=== PATIENT | male | born 1970 | race Caucasian/White ===

== ENCOUNTER → 2016-04-16 | Outpatient (CLI) | payer OTHER ==
--- NOTE | 2016-04-16 08:23 | MR ---
EXAMINATION TYPE: MR shoulder RT wo con DATE OF EXAM: 04/16/2016 7:03 AM COMPARISON: Preoperative study of 02/06/2012 HISTORY: RT. shoulder pain, prior surgeries TECHNIQUE: Multiplanar multispin echo imaging of the right shoulder was performed. FINDINGS: Rotator cuff : Extensive postsurgical change of rotator cuff repair with the extensive metallic susce ptibility artifact resulting in nondiagnostic evaluation. Bursa: No bursal effusion or thickening is seen. Musculature: There is no muscular tear, contusion, or atrophy. Acromioclavicular joint : Postsurgical changes. Poorly evaluated given the extensive artifact. Osseous structures : There are no fractures or regions of abnormal bone marrow signal intensity. Long biceps tendon : Poorly visualized given extensive metallic susceptibility artifact. Glenohumeral Joint fluid : There is no glenohumeral joint effusion. Cartilage and Bone : No focal hyaline cartilage defects are noted. No Hill-Sachs, reverse Hill-Sachs, or bony Bankart lesions are seen. Labrum : There are no SLAP or soft tissue Bankart lesions. No paralabral cysts are seen. OTHER FINDINGS : none IMPRESSION: 1. Essentially nondiagnostic study for evaluation of the rotator cuff given extensive metallic suscep tibility artifact from prior rotator cuff surgery.
== END | disposition home or self-care (01) ==
LOC: RADMRIMAIN 06:18
PROVIDERS: ATTEND Internal Medicine
DX: M25.511 Pain in right shoulder (principal)

== ENCOUNTER 2016-08-02 11:18 | Emergency (ER) | payer OTHER ==
[2016-08-02 11:39] VITALS: TEMP 97.4
[2016-08-02] MEDS ORDERED: SODIUM CHLORIDE 0.9% 1,000 ML IV STA ×2 (12:13)
[2016-08-02] MEDS ORDERED: RX INFO: IV CONTRAST WAS GIVEN 1 EACH MISC MISCELLANE PRN (12:13)
[2016-08-02] MEDS ORDERED: LORazepam 2 MG/ML SYRINGE IV STA (12:17)
[2016-08-02 12:40] VITALS: RESP 18
[2016-08-02 12:46] LABS: Basophils # (A) 0.1 k/uL (0-0.2); Basophils % (A) 1 %; CH 32.7; CHCM 36.7; Eosinophils # (A) 0.3 k/uL (0-0.7); Eosinophils % (A) 3 %; HCT 40.3 % (39.0-53.0); HDW 2.89; HGB 14.6 gm/dL (13.0-17.5); Luc # (Auto) 0.17; Luc % (Auto) 2; Lymphocytes # (A) 2.5 k/uL (1.0-4.8); Lymphocytes % (A) 25 %; MCH 32.4 pg (25.0-35.0); MCHC 36.1 g/dL (31.0-37.0); MCV 89.6 fL (80.0-100.0); Monocytes # (A) 0.5 k/uL (0-1.0); Monocytes % (A) 5 %; Neutrophils # (A) 6.6 k/uL (1.3-7.7); Neutrophils % (A) 65 %; RDW 13.2 % (11.5-15.5); WBC 10.2 k/uL (3.8-10.6); WBC (Perox) 10.05
[2016-08-02 12:58] LABS: ALT 70 U/L (21-72); AST 41 U/L (17-59); Alkaline Phosphatase 79 U/L (38-126); Anion Gap 8 mmol/L; Blood Urea Nitrogen 13 mg/dL (9-20); Calcium 10.3 mg/dL (8.4-10.2); Carbon Dioxide 23 mmol/L (22-30); Chloride 109 mmol/L (98-107); Glucose 99 mg/dL (74-99); Magnesium 2.1 mg/dL (1.6-2.3); Non-African American GFR(MDRD) >60 (>60 ml/min/1.73 sqM); Potassium 4.6 mmol/L (3.5-5.1); Sodium 140 mmol/L (137-145); Total Bilirubin 0.7 mg/dL (0.2-1.3); Total Protein 6.3 g/dL (6.3-8.2)
[2016-08-02 13:14] LABS: Partial Thromboplastin Time 22.7 sec (22.0-30.0); Prothrombin Time 9.9 sec (9.0-12.0)
[2016-08-02 13:15] LABS: Creatine Kinase 159 U/L (55-170)
--- NOTE | 2016-08-02 13:27 | ED ---
General Adult HPI - General Chief complaint: Shortness of Breath Stated complaint: KULDIP Time Seen by Provider: 08/02/16 11:48 Source: patient, RN notes reviewed, old records reviewed Mode of arrival: ambulatory Limitations: no limitations - History of Present Illness Initial comments: This is a 45-year-old male here for evaluation. This patient presents here for evaluation of chest pain. Patient is chest pain shortness of breath. And a near syncopal event today. Patient has history of smoking and recently quit smoking. No history of DVT. Patient did have recent surgery about a month and a half ago. Otherwise patient has no complaints. No fevers. Increased cough and increased congestion. At this time is distress does complain of pain, pain with deep breath and pain with coughing right ribs - Related Data Home Medications Medication Instructions Recorded Confirmed Atenolol [Tenormin] 25 mg PO DAILY 08/02/16 08/02/16 Atomoxetine HCl [Strattera] 80 mg PO QAM 08/02/16 08/02/16 Cyclobenzaprine [Flexeril] 10 mg PO TID PRN 08/02/16 08/02/16 Zolpidem [Ambien] 10 mg PO HS PRN 08/02/16 08/02/16 Previous Rx's Medication Instructions Recorded Ibuprofen [Motrin] 800 mg PO Q6HR PRN #20 tab 04/03/15 Albuterol Inhaler [Ventolin Hfa 1 - 2 puff INHALATION Q6HR #1 08/02/16 Inhaler] inhaler Levofloxacin [Levaquin] 750 mg PO DAILY #7 tab 08/02/16 predniSONE 50 mg PO DAILY #5 tab 08/02/16 Allergies Allergy/AdvReac Type Severity Reaction Status Date / Time steroids Allergy Severe uncontrolled Uncoded 08/02/16 11:39 anger Review of Systems ROS Statement: Those systems with pertinent positive or pertinent negative responses have been documented in the HPI. ROS Other: All systems not noted in ROS Statement are negative. 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 Absent: scleral icterus, conjunctival injection, periorbital swelling ENT exam: Present: normal exam, mucous membranes moist Neck exam: Present: normal inspection. Absent: tenderness, meningismus, lymphadenopathy Respiratory exam: Present: normal lung sounds bilaterally. Absent: respiratory distress, wheezes, rales, rhonchi, stridor Cardiovascular Exam: Present: regular rate, normal rhythm, normal heart sounds. Absent: systolic murmur, diastolic murmur, rubs, gallop, clicks GI/Abdominal exam: Present: soft, normal bowel sounds. Absent: distended, tenderness, guarding, rebound, rigid Extremities exam: Present: normal inspection, full ROM, normal capillary refill. Absent: tenderness, pedal edema, joint swelling, calf tenderness Back exam: Present: normal inspection Neurological exam: Present: alert, oriented X3, CN II-XII intact Psychiatric exam: Present: normal affect, normal mood Skin exam: Present: warm, dry, intact, normal color. Absent: rash Course Vital Signs 08/02/16 08/02/16 08/02/16 11:37 12:37 14:07 Temperature 97.4 F L Pulse Rate 78 78 75 Respiratory 22 18 18 Rate Blood Pressure 138/92 138/81 125/73 O2 Sat by Pulse 94 L 97 95 Oximetry - Reevaluation(s) Reevaluation #1: 08/02/16 13:25 Patient does have pain control at this time Reevaluation #2: 08/02/16 14:12 Patient in no acute respiratory distress, pain is controlled. EKG Findings - EKG Comments: EKG Findings:: EKG shows normal sinus rhythm rate of 69, VA 144, QRS 96, QTC 396 Medical Decision Making - Medical Decision Making 42 female here with chest pain and right-sided chest pain, patient will be discharged home with pain control, treatment for pneumonia pneumonitis, CT negative for PE. EKG is negative and patient's otherwise in no acute distress - Lab Data Result diagrams: 08/02/16 12:28 05/26/17 12:28 Lab Results 08/02/16 08/02/16 08/02/16 Range/Units 12:28 12:28 12:28 WBC 10.2 (3.8-10.6) k/uL RBC 4.50 (4.30-5.90) m/uL Hgb 14.6 (13.0-17.5) gm/dL Hct 40.3 (39.0-53.0) % MCV 89.6 (80.0-100.0) fL MCH 32.4 (25.0-35.0) pg MCHC 36.1 (31.0-37.0) g/dL RDW 13.2 (11.5-15.5) % Plt Count 283 (150-450) k/uL Neutrophils % 65 % Lymphocytes % 25 % Monocytes % 5 % Eosinophils % 3 % Basophils % 1 % Neutrophils # 6.6 (1.3-7.7) k/uL Lymphocytes # 2.5 (1.0-4.8) k/uL Monocytes # 0.5 (0-1.0) k/uL Eosinophils # 0.3 (0-0.7) k/uL Basophils # 0.1 (0-0.2) k/uL PT (9.0-12.0) sec INR (<1.1) APTT (22.0-30.0) sec D-Dimer (<0.60) mg/L FEU Sodium 140 (137-145) mmol/L Potassium 4.6 (3.5-5.1) mmol/L Chloride 109 H (98-107) mmol/L Carbon Dioxide 23 (22-30) mmol/L Anion Gap 8 mmol/L BUN 13 (9-20) mg/dL Creatinine 0.87 (0.66-1.25) mg/dL Est GFR (MDRD) Af Amer >60 (>60 ml/min/1.73 sqM) Est GFR (MDRD) Non-Af >60 (>60 ml/min/1.73 sqM) Glucose 99 (74-99) mg/dL Calcium 10.3 H (8.4-10.2) mg/dL Magnesium 2.1 (1.6-2.3) mg/dL Total Bilirubin 0.7 (0.2-1.3) mg/dL AST 41 (17-59) U/L ALT 70 (21-72) U/L Alkaline Phosphatase 79 (38-126) U/L Total Creatine Kinase 159 (55-170) U/L CK-MB (CK-2) 2.1 (0.0-2.4) ng/mL CK-MB (CK-2) Rel Index 1.3 Troponin I <0.012 (0.000-0.034) ng/mL NT-Pro-B Natriuret Pep pg/mL Total Protein 6.3 (6.3-8.2) g/dL Albumin 4.0 (3.5-5.0) g/dL 08/02/16 08/02/16 Range/Units 12:28 12:28 WBC (3.8-10.6) k/uL RBC (4.30-5.90) m/uL Hgb (13.0-17.5) gm/dL Hct (39.0-53.0) % MCV (80.0-100.0) fL MCH (25.0-35.0) pg MCHC (31.0-37.0) g/dL RDW (11.5-15.5) % Plt Count (150-450) k/uL Neutrophils % % Lymphocytes % % Monocytes % % Eosinophils % % Basophils % % Neutrophils # (1.3-7.7) k/uL Lymphocytes # (1.0-4.8) k/uL Monocytes # (0-1.0) k/uL Eosinophils # (0-0.7) k/uL Basophils # (0-0.2) k/uL PT 9.9 (9.0-12.0) sec INR 1.0 (<1.1) APTT 22.7 (22.0-30.0) sec D-Dimer <0.17 (<0.60) mg/L FEU Sodium (137-145) mmol/L Potassium (3.5-5.1) mmol/L Chloride (98-107) mmol/L Carbon Dioxide (22-30) mmol/L Anion Gap mmol/L BUN (9-20) mg/dL Creatinine (0.66-1.25) mg/dL Est GFR (MDRD) Af Amer (>60 ml/min/1.73 sqM) Est GFR (MDRD) Non-Af (>60 ml/min/1.73 sqM) Glucose (74-99) mg/dL Calcium (8.4-10.2) mg/dL Magnesium (1.6-2.3) mg/dL Total Bilirubin (0.2-1.3) mg/dL AST (17-59) U/L ALT (21-72) U/L Alkaline Phosphatase (38-126) U/L Total Creatine Kinase (55-170) U/L CK-MB (CK-2) (0.0-2.4) ng/mL CK-MB (CK-2) Rel Index Troponin I (0.000-0.034) ng/mL NT-Pro-B Natriuret Pep 17 pg/mL Total Protein (6.3-8.2) g/dL Albumin (3.5-5.0) g/dL - Radiology Data Radiology results: report reviewed (CTA chest does show negative for PE but pneumonitis pneumonia), image reviewed Disposition Clinical Impression: Acute exacerbation of chronic obstructive airways disease, Community acquired pneumonia Disposition: HOME SELF-CARE Condition: Good Instructions: Acute Bronchitis (ED), Pneumonitis (ED), Community Acquired Pneumonia (ED) Prescriptions: Albuterol Inhaler [Ventolin Hfa Inhaler] 1 - 2 puff INHALATION Q6HR #1 inhaler Levofloxacin [Levaquin] 750 mg PO DAILY #7 tab predniSONE 50 mg PO DAILY #5 tab Referrals: Tanya Griggs MD [Primary Care Provider] - 1-2 days
[2016-08-02 13:28] LABS: Creatine Kinase MB 2.1 ng/mL (0.0-2.4); Troponin I <0.012 ng/mL (0.000-0.034)
--- NOTE | 2016-08-02 13:40 | CT ---
EXAMINATION TYPE: CT angio chest DATE OF EXAM: 08/02/2016 COMPARISON: Chest x-ray 03 April 2015 HISTORY: Cough and SOB CT DLP: 578 mGycm Automated exposure control for dose reduction was used. CONTRAST: CTA scan of the thorax is performed with IV Contrast, patient injected with 90 mL of Omnipaque 350, p ulmonary embolism protocol. MIP images are created and reviewed. 3D reconstructed images are create d on an independent workstation and reviewed. FINDINGS: LUNGS: The lungs are remarkable for some possible scarring or atelectasis in the right middle lobe, t here is minimal nodularity, axial image 89 left lower lobe, there is some associated groundglass opac ity suggesting some pneumonitis. There is no pleural effusion or pneumothorax seen. The tracheobro nchial tree is patent. There is bronchial wall thickening. AORTA: No additional significant abnormality is seen. There are coronary artery calcifications prese nt. Pulmonary artery is somewhat prominent. MEDIASTINUM: There is not satisfactory enhancement of the pulmonary artery and its branches, there is no CT evidence for pulmonary embolism. There are no greater than 1 cm hilar or mediastinal lymph no mikayla. No pericardial effusion is seen. OTHER: No additional significant abnormality is seen. The liver shows low attenuation likely due to fatty infiltration. IMPRESSION: CORRELATE FOR PULMONARY ARTERY HYPERTENSION. SUBOPTIMAL ENHANCEMENT OF SEGMENTAL BRANCHES TO EXCLUDE PULMONARY EMBOLISM. POSSIBLE PNEUMONITIS LEFT LOWER LOBE. CORRELATE FOR POSSIBLE EARLY PNEUMONIA. ADD ITIONAL FINDINGS ABOVE.
[2016-08-02 14:08] VITALS: BP 125/73; PULSE 75
[2016-08-02] MEDS ORDERED: methylPREDNISolone SOD SUCCI 125 MG/2 ML VIAL IV STA (14:10)
[2016-08-02] MEDS ORDERED: LEVOFLOXACIN 750 MG TAB PO STA (14:10)
[2016-08-02] MEDS ORDERED: KETOROLAC 30 MG/ML 1 ML VIAL IVP STA (14:11)
== END 2016-08-02 14:42 | disposition home or self-care (01) ==
LOC: EC 11:18
DX: J44.1 Chronic obstructive pulmonary disease with (acute) exacerbation (principal); J18.9 Pneumonia, unspecified organism; I10 Essential (primary) hypertension; F90.9 Attention-deficit hyperactivity disorder, unspecified type; Z87.891 Personal history of nicotine dependence; Z79.899 Other long term (current) drug therapy; Z88.8 Allergy status to other drugs, medicaments and biological substances
CPT/HCPCS: 36415; 93005; 85379; 83880; 80053; 82550; 82553; 83735; 84484; 85025; 85610; 85730; 71275; 99285; 96374; 96375 ×2; 96361 ×2; J2060; J2930; Q9967; J1885

== ENCOUNTER → 2016-09-03 | Outpatient (CLI) | payer OTHER ==
--- NOTE | 2016-09-03 15:58 | XR ---
EXAMINATION TYPE: XR foot complete bilateral DATE OF EXAM ORDERED: 09/03/2016 HISTORY: M79.673 pain in feet. COMPARISON: None. FINDINGS: No fracture, dislocation or other acute osseous lesion is seen. There is mild degenerative change in the first MTP joints bilaterally. There are small, plantar calcaneal spurs present bilater ally. IMPRESSION: 1. NO ACUTE OSSEOUS LESION. 2. PLANTAR CALCANEAL SPURS. 3. MINIMAL DEGENERATIVE CHANGE, BOTH FIRST MTP JOINTS.
== END | disposition home or self-care (01) ==
LOC: RADXRMAIN 15:05
PROVIDERS: ATTEND Internal Medicine
DX: M77.32 Calcaneal spur, left foot (principal); M77.31 Calcaneal spur, right foot; M25.872 Other specified joint disorders, left ankle and foot; M25.871 Other specified joint disorders, right ankle and foot

== ENCOUNTER 2017-05-27 22:05 | Emergency (ER) | payer OTHER ==
[2017-05-27 22:13] VITALS: TEMP 99
[2017-05-27] MEDS ORDERED: KETOROLAC 30 MG/ML 1 ML VIAL IM STA (22:34)
[2017-05-27] MEDS ORDERED: ORPHENADRINE 30 MG/ML 2 ML VIAL IM STA (22:34)
[2017-05-27] MEDS ORDERED: HYDROcodone/APAP 5-325MG 1 EACH TAB PO STA (22:34)
--- NOTE | 2017-05-27 22:43 | ED ---
Back Pain HPI - General Chief Complaint: Back Pain/Injury Stated Complaint: fell in tub/Back pain Time Seen by Provider: 05/27/17 22:19 Source: patient Limitations: no limitations - History of Present Illness Initial Comments: 46-year-old male patient presents to the emergency department today for evaluation of low back pain. Patient states yesterday he had a slip and fall in the bathtub. He denies striking his back on anything however reports that he started having low back pain today. Patient is reporting midline lower lumbar pain. He states he is having some tingling to his bilateral lower extremities however this is chronic for him. He denies any loss of bowel or bladder control. Denies any saddle anesthesia. Patient states he is able to ambulate but it does increase his pain. Patient denies hitting his head or losing consciousness with the fall. Denies any other injuries. Patient denies any headache, neck pain, chest pain, shortness of breath, dizziness, weakness, abdominal pain, nausea, vomiting, or difficulties with bowel movements or urination. - Related Data Home Medications Medication Instructions Recorded Confirmed Atomoxetine HCl [Strattera] 80 mg PO QAM 08/02/16 05/27/17 Cyclobenzaprine [Flexeril] 10 mg PO TID PRN 08/02/16 05/27/17 Lisinopril [Prinivil] 10 mg PO DAILY 05/27/17 05/27/17 Previous Rx's Medication Instructions Recorded Ibuprofen [Motrin] 800 mg PO Q6HR PRN #20 tab 04/03/15 Hydrocodone/Acetaminophen [Republic 1 tab PO Q6HR PRN #8 tab 05/27/17 5-325] Ibuprofen [Motrin] 600 mg PO Q8HR PRN #30 tab 05/27/17 Allergies Allergy/AdvReac Type Severity Reaction Status Date / Time steroids Allergy Severe uncontrolled Uncoded 05/27/17 22:12 anger Review of Systems ROS Statement: Those systems with pertinent positive or pertinent negative responses have been documented in the HPI. ROS Other: All systems not noted in ROS Statement are negative. Past Medical History Past Medical History: Hypertension Additional Past Medical History / Comment(s): Kidney stones History of Any Multi-Drug Resistant Organisms: None Reported Past Surgical History: Orthopedic Surgery Additional Past Surgical History / Comment(s): bilateral shoulder, bilateral knees Past Anesthesia/Blood Transfusion Reactions: No Reported Reaction Past Psychological History: ADD/ADHD Smoking Status: Former smoker Past Alcohol Use History: Occasional Past Drug Use History: Marijuana - Past Family History Mother Family Medical History: No Reported History General Exam Limitations: no limitations General appearance: alert, in no apparent distress, other (This is a well- developed, well-nourished adult male patient in no acute distress. Vital signs upon presentation are temperature 99.0F, pulse 112, respirations 20, blood pressure 133/83, pulse ox 97% on room air.) Eye exam: Present: normal appearance, PERRL, EOMI. Absent: scleral icterus, conjunctival injection, periorbital swelling ENT exam: Present: normal exam, normal oropharynx, mucous membranes moist Respiratory exam: Present: normal lung sounds bilaterally. Absent: respiratory distress, wheezes, rales, rhonchi, stridor Cardiovascular Exam: Present: normal rhythm, tachycardia, normal heart sounds. Absent: systolic murmur, diastolic murmur, rubs, gallop, clicks GI/Abdominal exam: Present: soft, normal bowel sounds. Absent: distended, tenderness, guarding, rebound, rigid Back exam: Present: normal inspection, vertebral tenderness (Midline lower lumbar tenderness) Neurological exam: Present: alert, oriented X3, CN II-XII intact Psychiatric exam: Present: normal affect, normal mood Skin exam: Present: warm, dry, intact, normal color. Absent: rash Course Vital Signs 05/27/17 22:11 Temperature 99.0 F Pulse Rate 112 H Respiratory 20 Rate Blood Pressure 133/83 O2 Sat by Pulse 97 Oximetry Medical Decision Making - Medical Decision Making 46-year-old male patient presented to the emergency department today for evaluation of lower back pain. Physical examination did reveal some tenderness over the lower lumbar and upper sacral spine. Patient did also have some right paraspinal tenderness. Strength lower extremities is 5/5. Patient had good sensation and cap refill. Pedal and posttibial pulses are 2+ and equal bilaterally. Patient did receive x-ray of the lumbosacral spine which showed no acute abnormalities. I did witness patient ambulated into the bathroom. Given prescription for ibuprofen and a 2 day prescription of Republic. He does have Flexeril at home is instructed to take this. He is instructed to follow- up with his primary care physician for recheck in 1-2 days. He is instructed to return here immediately for any new, worsening, or concerning symptoms. Patient verbalizes understanding and agree with this plan. - Radiology Data Radiology results: report reviewed, image reviewed 5 views of the lumbosacral spine are obtained. Lumbar vertebrae abnormal spacing alignment. Posterior elements are intact. Sacroiliac joints appear normal. Impression by Dr. Brasher shows negative lumbar spine exam. Spurring noted in the lower thoracic spine. No acute fracture seen. There is 50% wedging of the T11 vertebra probably from old injury. Disposition Clinical Impression: Acute low back pain Disposition: HOME SELF-CARE Condition: Good Instructions: Acute Low Back Pain (ED), Lower Back Exercises (ED) Additional Instructions: Take medications as directed. Follow-up through primary care physician for recheck in 1-2 days. Return here immediately for any new, worsening, or concerning symptoms. Prescriptions: Hydrocodone/Acetaminophen [Republic 5-325] 1 tab PO Q6HR PRN #8 tab PRN Reason: Pain Ibuprofen [Motrin] 600 mg PO Q8HR PRN #30 tab PRN Reason: Pain Referrals: Yamilka Kathleen MD [Primary Care Provider] - 1-2 days Tye Rosales DO [Doctor of Osteopathic Medicine] - 1-2 days Time of Disposition: 23:33
--- NOTE | 2017-05-27 23:13 | XR ---
EXAMINATION TYPE: XR lumbosacral spine min 4V DATE OF EXAM: 05/27/2017 COMPARISON: NONE HISTORY: Back pain TECHNIQUE: 5 views FINDINGS: Lumbar vertebra have normal spacing and alignment. Posterior elements are intact. Sacroilia c joints appear normal. IMPRESSION: Negative lumbar spine exam. Spurring noted in the lower thoracic spine. No acute fracture seen. There is 15% wedging of T11 vertebra probably from old injury..
[2017-05-27 23:43] VITALS: BP 158/90; PULSE 87; RESP 18
== END 2017-05-27 23:45 | disposition home or self-care (01) ==
LOC: EC 22:05
DX: M54.5 Low back pain (principal); M53.3 Sacrococcygeal disorders, not elsewhere classified; R20.2 Paresthesia of skin; R00.0 Tachycardia, unspecified; I10 Essential (primary) hypertension; F90.9 Attention-deficit hyperactivity disorder, unspecified type; Z87.891 Personal history of nicotine dependence; Z79.899 Other long term (current) drug therapy; Z88.8 Allergy status to other drugs, medicaments and biological substances; W18.2XXA Fall in (into) shower or empty bathtub, initial encounter
CPT/HCPCS: 96372 ×3; 99283 ×2; 72110; J2360; J1885

== ENCOUNTER → 2017-06-14 | Outpatient (CLI) | payer OTHER ==
[2017-06-14 07:39] LABS: Blood Urea Nitrogen 18 mg/dL (9-20)
--- NOTE | 2017-06-14 08:35 | MR ---
MR lumbar spine wo/w con LOWER BACK PAIN [facility] Multiplanar, multiecho imaging of the lumbar spine was obtained without contrast on a 3 Rosalie magnet. REFERENCE: None. FINDINGS: Paraspinal soft tissues are normal. Vertebral body height and alignment are maintained. Cord signal is maintained. The conus ends normally at the level of the T12-L1 disc.. At T12-L1, there is disc space loss. There is mild hypertrophic spondylosis anteriorly. The intervert ebral foramina are well maintained. The facets are unremarkable. At L1-2, there is mild disc space loss. The intervertebral foramina are well maintained. There is no significant compressive discopathy. There are mild hypertrophic changes in the facets. At L2-3, the intervertebral foramina are well maintained. There is no significant compressive discopa thy. There are hypertrophic changes and capsulitis within the facets. At L3-4, there is mild disc space loss and disc desiccation. Intervertebral foramina are well maintai rahul. There is no significant compressive discopathy. There is mild hypertrophic change and capsulitis within the facets. At L4-5, there is hypertrophic change and capsulitis within the facets. At L5-S1, there is a broad-based disc protrusion eccentric towards the right. This extends into the i ntervertebral foramina on the right and causing intervertebral foraminal narrowing on the right. This abuts the exiting L5 nerve root on the right. There are hypertrophic changes in the facets. IMPRESSION: 1. DIFFUSE DEGENERATIVE DISC DISEASE AND FACET ARTHROPATHY. 2. BROAD-BASED DISC PROTRUSION, L5-S1 ECCENTRIC TOWARDS THE RIGHT AND CAUSING MILD RIGHT-SIDED INTERV ERTEBRAL FORAMINAL NARROWING. THIS ABUTS THE EXITING L5 NERVE ROOT.
== END | disposition home or self-care (01) ==
LOC: RADMRIMAIN 07:02
PROVIDERS: ATTEND Internal Medicine
DX: M99.73 Connective tissue and disc stenosis of intervertebral foramina of lumbar region (principal); M51.27 Other intervertebral disc displacement, lumbosacral region; M51.36 Other intervertebral disc degeneration, lumbar region; M46.86 Other specified inflammatory spondylopathies, lumbar region
CPT/HCPCS: 82565; 84520; 72158; 36415; A9581

== ENCOUNTER 2017-07-05 15:32 | Emergency (ER) | payer OTHER ==
[2017-07-05 15:50] VITALS: TEMP 99
[2017-07-05] MEDS ORDERED: ORPHENADRINE 30 MG/ML 2 ML VIAL IM STA (16:00)
[2017-07-05] MEDS ORDERED: KETOROLAC 30 MG/ML 1 ML VIAL IM STA (16:00)
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
[2017-07-05 16:48] VITALS: BP 139/84; PULSE 96; RESP 20
--- NOTE | 2017-07-05 17:05 | XR ---
EXAMINATION TYPE: XR lumbosacral spine min 4V DATE OF EXAM: 07/05/2017 COMPARISON: 05/27/2017 HISTORY: 46-year-old male with pain/injury TECHNIQUE: 5 views FINDINGS: 5 lumbar type vertebral bodies. Facet arthropathy lower lumbar spine. No pars interarticularis defect . Mild endplate spondylosis throughout. Vertebral body heights are preserved and alignment is maintai rahul. Stable minimal wedging of T11 suggesting remote injury. IMPRESSION: Mild multilevel degenerative disc disease. Facet arthropathy lower lumbar spine. No vertebral vikash mary collapse or malalignment.
== END 2017-07-05 17:38 | disposition home or self-care (01) ==
LOC: EC 15:32
DX: M54.5 Low back pain (principal); G89.29 Other chronic pain; I10 Essential (primary) hypertension; F90.9 Attention-deficit hyperactivity disorder, unspecified type; F17.200 Nicotine dependence, unspecified, uncomplicated; Z79.899 Other long term (current) drug therapy; Z88.8 Allergy status to other drugs, medicaments and biological substances; Y04.0XXA Assault by unarmed brawl or fight, initial encounter; Y93.72 Activity, wrestling
CPT/HCPCS: 72110; 99284; 96372 ×2; J2360; J1885

== ENCOUNTER 2020-08-06 08:43 | Emergency (ER) | payer OTHER ==
[2020-08-06 08:47] VITALS: BP 135/96; PULSE 97; RESP 18; TEMP 98.2
--- NOTE | 2020-08-06 09:03 | ED ---
General Adult HPI - General Chief complaint: Recheck/Abnormal Lab/Rx Stated complaint: covid test Time Seen by Provider: 08/06/20 08:50 Source: patient, RN notes reviewed Mode of arrival: ambulatory Limitations: no limitations - History of Present Illness Initial comments: 49-year-old male presents emergency Department with chief complaint of needing COVID-19 testing. Patient is scheduled for surgery on Friday was advised that the need to have a PCR covid test today. Patient has no symptoms no other complaints patient is scheduled for left wrist surgery - Related Data Home Medications Medication Instructions Recorded Confirmed Atomoxetine HCl [Strattera] 80 mg PO QAM 08/02/16 05/27/17 Cyclobenzaprine [Flexeril] 10 mg PO TID PRN 08/02/16 05/27/17 Lisinopril [Prinivil] 10 mg PO DAILY 05/27/17 05/27/17 Previous Rx's Medication Instructions Recorded Ibuprofen [Motrin] 800 mg PO Q6HR PRN #20 tab 04/03/15 Hydrocodone/Acetaminophen [[place] 1 tab PO Q6HR PRN #8 tab 05/27/17 5-325] Ibuprofen [Motrin] 600 mg PO Q8HR PRN #30 tab 05/27/17 Allergies Allergy/AdvReac Type Severity Reaction Status Date / Time steroids Allergy Severe uncontrolled Uncoded 08/06/20 08:44 anger Review of Systems ROS Statement: Those systems with pertinent positive or pertinent negative responses have been documented in the HPI. ROS Other: All systems not noted in ROS Statement are negative. Past Medical History Past Medical History: Hypertension Additional Past Medical History / Comment(s): Kidney stones History of Any Multi-Drug Resistant Organisms: None Reported Past Surgical History: Orthopedic Surgery Additional Past Surgical History / Comment(s): bilateral shoulder, bilateral knees Past Anesthesia/Blood Transfusion Reactions: No Reported Reaction Past Psychological History: ADD/ADHD Smoking Status: Former smoker Past Alcohol Use History: Occasional Past Drug Use History: Marijuana - Past Family History Mother Family Medical History: No Reported History General Exam Limitations: no limitations General appearance: alert, in no apparent distress Head exam: Present: atraumatic, normocephalic, normal inspection Eye exam: Present: normal appearance Respiratory exam: Present: normal lung sounds bilaterally. Absent: respiratory distress, wheezes, rales, rhonchi, stridor Cardiovascular Exam: Present: regular rate, normal rhythm, normal heart sounds. Absent: systolic murmur, diastolic murmur, rubs, gallop, clicks Course Vital Signs 08/06/20 08:44 Temperature 98.2 F Pulse Rate 97 Respiratory 18 Rate Blood Pressure 135/96 O2 Sat by Pulse 95 Oximetry Disposition Clinical Impression: Encounter for laboratory testing for COVID-19 virus Disposition: HOME SELF-CARE Condition: Stable Additional Instructions: Please return to the Emergency Department if symptoms worsen or any other concerns. Is patient prescribed a controlled substance at d/c from ED?: No Referrals: Yamilka Kathleen MD [Primary Care Provider] - 1-2 days Time of Disposition: 09:02
== END 2020-08-06 09:13 | disposition home or self-care (01) ==
LOC: EC 08:43
DX: Z20.822 Contact with and (suspected) exposure to COVID-19 (principal); I10 Essential (primary) hypertension; Z79.1 Long term (current) use of non-steroidal anti-inflammatories (NSAID); Z87.442 Personal history of urinary calculi; Z87.891 Personal history of nicotine dependence
CPT/HCPCS: 87636; 99282

== ENCOUNTER → 2023-02-12 | Outpatient (CLI) | payer OTHER ==
--- NOTE | 2023-02-12 12:14 | XR ---
EXAM TYPE: LUMBAR SPINE X RAY SERIES COMPARISON: 07/05/2017 HISTORY: Pain TECHNIQUE: 4 views are submitted. FINDINGS: Alignment is anatomic. The pedicles are intact. The transverse processes are intact. Hypertrophic s purring and mild wedging at T11 and T12 appears chronic. Vacuum disc at T11-T12 and T12-L1 compatible severe degenerative disc disease. Mild degenerative disc disease at level L3-4 and L5-S1. There is f acet arthropathy L4-5 and L5-S1 with minimal anterolisthesis L5-S1. IMPRESSION: 1. Stable multilevel degenerative disc disease most marked at the thoracolumbar junction. 2. Facet arthropathy lower lumbar spine with grade 1 anterolisthesis L5-S1. Suspect foraminal encroac hment. Recommend MRI.
== END | disposition home or self-care (01) ==
LOC: RADXRYALE 11:48
PROVIDERS: ATTEND Internal Medicine
DX: M47.817 Spondylosis without myelopathy or radiculopathy, lumbosacral region (principal); M43.17 Spondylolisthesis, lumbosacral region; M51.35 Other intervertebral disc degeneration, thoracolumbar region
CPT/HCPCS: 72110